=== PATIENT | female | born 1930 | race Caucasian/White ===

== ENCOUNTER → 2016-10-12 | Outpatient (CLI) | payer OTHER ==
--- NOTE | ~2016-10-12 | 2DMMODE ---
[facility] [address] [place] [address] 2 D/M-MODE ECHOCARDIOGRAM Name: TIFFANY UGALDE Room #: REG [facility]#: [id number] Admission: 10/12/16 Attend Phys: Oh Gonzalez MD Discharge: Date of : 34 Date of Service: 10/12/16 1507 Report #: [id number] THIS REPORT FOR: //name// APPROVED REPORT Study performed: 10/12/2016 13:57:51 EXAM: Comprehensive 2D, Doppler, and color-flow Echocardiogram Patient Location: Out-Patient Status: routine BSA: 1.53 HR: 96 bpm BP: 148/92 mmHg Rhythm: Atrial Fibrillation Other Information Study Quality: Good Indications Chronic Afib. 2D Dimensions RVDd: 37.25 mm LVEF(%): 56.03 (>50%) IVSd: 7.30 (7-11mm) LVOT Diam: 18.89 (18-24mm) LVDd: 45.92 mm PWd: 7.06 (7-11mm) Ascending Ao: 30.71 (22-36mm) LVDs: 32.53 (25-40mm) Aortic Root: 32.56 mm Gray's LVEF: 56.03 % Volumes Left Atrial Volume (Systole) Single Plane 4CH: 46.94 mL Single Plane 2CH: 74.93 mL LA ESV Index: 42.00 mL/m2 Aortic Valve AoV Peak Noble.: 1.13 m/s AO Peak Gr.: 5.15 mmHg LVOT Max P.27 mmHg LVOT Max V: 0.90 m/s NIRAJ Vmax: 2.23 cm2 Mitral Valve MV Decel. Time: 152.07 ms MV E Max Noble.: 1.31 m/s [facility] [place] [address] 2 D/M-MODE ECHOCARDIOGRAM Name: TIFFANY UGALDE Room #: [facility]#: [id number] Admission: 10/12/16 Attend Phys: Oh Gonzalez MD Discharge: Date of : 34 Date of Service: 10/12/16 1507 Report #: [id number] Pulmonary Valve PV Peak Noble.: 1.09 m/s PV Peak Gr.: 4.75 mmHg Tricuspid Valve TR Peak Noble.: 2.52 m/s RAP Estimate: 5.00 mmHg TR Peak Gr.: 25.34 mmHg PA Pressure: 30.00 mmHg Left Ventricle The left ventricle is normal size. There is normal left ventricular wall thickness. Left ventricular systolic function is normal. LVEF is 50-55%. This study is not technically sufficient to allow evaluation of the LV diastolic function due to atrial fibrillation. Right Ventricle The right ventricle is normal size. The right ventricular systolic function is normal. Atria Left atrium is moderately dilated. Right atrium is moderately dilated. Aortic Valve Aortic valve is mildly calcified. Trace aortic regurgitation. There is no aortic valvular stenosis. Mitral Valve Mitral valve leaflets are mildly thickened. Mild to moderate mitral regurgitation. Tricuspid Valve The tricuspid valve is normal in structure. There is mild to moderate tricuspid regurgitation. The right atrial pressure is estimated at 5 mmHg. There is borderline mild pulmonary hypertension with an estimated PAP of 30mmHg. Pulmonic Valve The pulmonary valve is normal in structure. Trace pulmonic regurgitation. Great Vessels The aortic root is normal in size. The ascending aorta is normal in size. IVC is normal in size and collapses >50% with inspiration. [facility] [address] [place] [address] 2 D/M-MODE ECHOCARDIOGRAM Name: TIFFANY UGALDE Room #: [facility]#: [id number] Admission: 10/12/16 Attend Phys: Oh Gonzalez MD Discharge: Date of : 34 Date of Service: 10/12/16 1507 Report #: [id number] Pericardium There is no pericardial effusion. <Conclusion> The left ventricle is normal size. Left ventricular systolic function is normal. The right ventricle is normal size. Left atrium is moderately dilated. Right atrium is moderately dilated. Trace aortic regurgitation. Mild to moderate mitral regurgitation. There is mild to moderate tricuspid regurgitation. The right atrial pressure is estimated at 5 mmHg. There is borderline mild pulmonary hypertension with an estimated PAP of 30mmHg. <ELECTRONICALLY SIGNED> By: Oh Gonzalez MD 10/12/16 1507 1507 1507 Oh Gonzalez MD /INF
== END ==
LOC: CV 09:57
DX: I08.1 Rheumatic disorders of both mitral and tricuspid valves (principal); I48.2 Chronic atrial fibrillation

== ENCOUNTER → 2017-10-08 | Outpatient (CLI) | payer OTHER | LOC: NUC 11:27 | DX: I48.2 Chronic atrial fibrillation (principal); I42.9 Cardiomyopathy, unspecified; I10 Essential (primary) hypertension; Z82.49 Family history of ischemic heart disease and other diseases of the circulatory system ==

== ENCOUNTER → 2018-10-10 | Outpatient (CLI) | payer OTHER ==
--- NOTE | 2018-10-10 15:16 | 2DMMODE ---
[facility] [address] [place] [address] 2 D/M-MODE ECHOCARDIOGRAM Name: TIFFANY UGALDE Room #: [facility]#: [id number] Admission: 10/10/18 Attend Phys: Oh Gonzalez MD Discharge: Date of : 34 Date of Service: 10/10/18 1515 Report #: [id number] THIS REPORT FOR: //name// APPROVED REPORT Study performed: 10/10/2018 13:59:50 EXAM: Comprehensive 2D, Doppler, and color-flow Echocardiogram Patient Location: Out-Patient Room #: Echo Lab 2 Status: routine BSA: 1.53 HR: 69 bpm BP: 142/88 mmHg Rhythm: Atrial Fibrillation Other Information Study Quality: Good Indications CAD 2D Dimensions RVDd: 26.86 mm IVSd: 9.04 (7-11mm) LVOT Diam: 18.27 (18-24mm) LVDd: 41.37 mm PWd: 8.31 (7-11mm) Ascending Ao: 34.35 (22-36mm) LVDs: 24.59 (25-40mm) Aortic Root: 34.02 mm IVC: 20.00 mm Volumes Left Atrial Volume (Systole) Single Plane 4CH: 52.17 mL Single Plane 2CH: 68.79 mL LA ESV Index: 45.00 mL/m2 Aortic Valve AoV Peak Noble.: 1.06 m/s AO Peak Gr.: 4.94 mmHg LVOT Max P.39 mmHg LVOT Max V: 0.92 m/s NIRAJ Vmax: 2.28 cm2 Mitral Valve MV Decel. Time: 143.46 ms MV E Max Noble.: 1.21 m/s IVRT: 76.12 ms [facility] [address] [place] [address] 2 D/M-MODE ECHOCARDIOGRAM Name: TIFFANY UGALDE Room #: [facility]#: [id number] Admission: 10/10/18 Attend Phys: Oh Gonzalez MD Discharge: Date of : 34 Date of Service: 10/10/18 1515 Report #: [id number] Pulmonary Valve PV Peak Noble.: 0.84 m/s PV Peak Gr.: 2.83 mmHg Tricuspid Valve TR Peak Noble.: 2.61 m/s RAP Estimate: 5.00 mmHg TR Peak Gr.: 27.23 mmHg PA Pressure: 32.00 mmHg Left Ventricle The left ventricle is normal size. There is normal left ventricular wall thickness. The left ventricular systolic function is normal. The left ventricular ejection fraction is within the normal range. LVEF is 50-55%. This study is not technically sufficient to allow evaluation of the LV diastolic function due to atrial fibrillation. Right Ventricle The right ventricle is normal size. The right ventricular systolic function is normal. Atria Left atrium is dilated. Right atrium is dilated. Aortic Valve The Aortic valve is sclerotic. Trace aortic regurgitation. There is no aortic valvular stenosis. Mitral Valve There is mitral annular calcification. Moderate mitral regurgitation. No evidence of mitral valve stenosis. Tricuspid Valve The tricuspid valve is normal in structure. Mild to moderate tricuspid regurgitation. Estimated PAP is 32mmHg. Pulmonic Valve Pulmonic valve is not well visualized. Trace pulmonic regurgitation. Great Vessels The aortic root is normal in size. IVC is normal in size and collapses >50% with inspiration. Pericardium There is no pericardial effusion. [facility] [place] [place] [address] 2 D/M-MODE ECHOCARDIOGRAM Name: TIFFANY UGALDE Room #: [facility]#: [id number] Admission: 10/10/18 Attend Phys: Oh Gonzalez MD Discharge: Date of : 34 Date of Service: 10/10/18 1515 Report #: [id number] <Conclusion> The left ventricle is normal size. There is normal left ventricular wall thickness. The left ventricular systolic function is normal. The right ventricle is normal size. Left atrium is dilated. Right atrium is dilated. The Aortic valve is sclerotic. Moderate mitral regurgitation. Mild to moderate tricuspid regurgitation. Estimated PAP is 32mmHg. <ELECTRONICALLY SIGNED> By: Oh Gonzalez MD 10/10/18 1515 1515 1515 Oh Gonzalez MD /MAIKEL
== END ==
LOC: CV 09:26
DX: I08.3 Combined rheumatic disorders of mitral, aortic and tricuspid valves (principal); I25.10 Atherosclerotic heart disease of native coronary artery without angina pectoris

== ENCOUNTER → 2019-04-10 | Outpatient (CLI) | payer OTHER | LOC: SJCVC 15:36 | DX: I48.20 Chronic atrial fibrillation, unspecified (principal); R94.31 Abnormal electrocardiogram [ECG] [EKG]; R60.9 Edema, unspecified; I10 Essential (primary) hypertension; E78.5 Hyperlipidemia, unspecified; Z79.01 Long term (current) use of anticoagulants; Z79.899 Other long term (current) drug therapy ==

== ENCOUNTER 2019-06-30 12:53 | Emergency (ER) | payer OTHER ==
[~2019-06-30] VITALS: Ht 160 cm; Wt 51.7 kg
[2019-06-30] MEDS ORDERED: PACERONE200 MG PO (13:09)
[2019-06-30] MEDS ORDERED: PRINIVIL10 MG PO (13:10)
[2019-06-30] MEDS ORDERED: DILTIAZEM ER180 M2 PO (13:10)
[2019-06-30] MEDS ORDERED: SYNTHROID88 MC1 PO (13:10)
[2019-06-30] MEDS ORDERED: VITAMIN D250 MC1 PO (13:11)
[2019-06-30] MEDS ORDERED: FISH OIL 1,0001 EAC9 PO (13:12)
[2019-06-30] MEDS ORDERED: XARELTO15 MG PO (13:12)
[2019-06-30] MEDS ORDERED: CALCIUM500 MG PO (13:12)
[2019-06-30] MEDS ORDERED: KEFLEX500 M1 PO (13:13)
[2019-06-30] MEDS ORDERED: GLUCOSAMINE1000 MG PO (13:14)
--- NOTE | 2019-06-30 15:01 | EKG ---
[facility] [place] [address] [place] [address] ELECTROCARDIOGRAM REPORT Name: TIFFANY UGALDE Room #: REG [facility]#: [id number] Admission: 06/30/19 Attend Phys: Discharge: Date of : 34 Report #: [id number] THIS REPORT FOR: cc: Jl Magallanse MD, Thomas P. MD Couchonnal, Luis F. MD ~ THIS REPORT FOR: //name// [facility] ED Test Date: 2019-06-30 Test Time: 14:52:14 Pat Name: TIFFANY UGALDE Department: Room: Gender: F [employer] Chief: [facility] : 1930 Requested By: Arthur Collins Order Number: [id number] MD: Jorden Metcalf Measurements Intervals [place] Rate: 93 P: UT: QRS: 60 QRSD: 86 T: -46 QT: 495 QTc: 616 Interpretive Statements Atrial fibrillation Probable LVH with secondary repol abnrm Prolonged QT interval Compared to ECG 03/22/1994 06:42:00 Electronically Signed On 06-30-2019 15:00:02 CDT by Jorden Metcalf [email or web address] <ELECTRONICALLY SIGNED> By: Jorden Metcalf MD 06/30/19 1500 145 145 Jorden Metcalf MD /DIOR
[2019-06-30 15:10] LABS: ABSOLUTE NEUTROPHILS 9.5 thou/uL (1.4-8.2); BASOPHILS 0.5 % (0.0-2.0); EOSINOPHILS 0.4 % (0.0-3.0); HEMATOCRIT 38.1 % (37.0-47.0); HEMOGLOBIN 12.8 gm/dL (12.0-15.0); LYMPHOCYTES 11.2 % (24.0-44.0); MCH 31.5 pg (26.0-34.0); MCHC 33.5 g/dL (28.0-37.0); MCV 93.9 fL (80.0-100.0); MONOCYTES 4.9 % (1.0-8.0); PLATELET COUNT 303 thou/uL (150-400); RBC 4.05 mil/uL (4.20-5.00); RDW 14.2 % (10.5-14.5); WBC 11.5 thou/uL (4.0-11.0)
[2019-06-30 15:18] LABS: CALCIUM 9.1 mg/dL (8.5-10.1); CREATININE 1.3 mg/dL (0.6-1.0); MAGNESIUM 2.1 mg/dL (1.8-2.4); POTASSIUM 5.3 mmol/L (3.5-5.1)
[2019-06-30 16:25] VITALS: BP 134/71
== END 2019-06-30 16:25 | disposition home or self-care (01) ==
LOC: ER 12:53
PROVIDERS: Emergency Medicine
DX: K64.4 Residual hemorrhoidal skin tags (principal); I10 Essential (primary) hypertension; Z79.899 Other long term (current) drug therapy; Z88.1 Allergy status to other antibiotic agents

== ENCOUNTER → 2019-07-14 | Outpatient (CLI) | payer OTHER ==
[~2019-07-14] MED LIST: CALCIUM500 MG PO; DILTIAZEM ER180 M2 PO; FISH OIL 1,0001 EAC9 PO; GLUCOSAMINE1000 MG PO; KEFLEX500 M1 PO; PACERONE200 MG PO; PRINIVIL10 MG PO; SYNTHROID88 MC1 PO; VITAMIN D250 MC1 PO; XARELTO15 MG PO
== END ==
LOC: SJCVCIMAG 08:52
DX: I08.8 Other rheumatic multiple valve diseases (principal); I11.9 Hypertensive heart disease without heart failure; R94.31 Abnormal electrocardiogram [ECG] [EKG]; I48.20 Chronic atrial fibrillation, unspecified; T46.2X5S Adverse effect of other antidysrhythmic drugs, sequela; I42.9 Cardiomyopathy, unspecified; Z95.0 Presence of cardiac pacemaker; Z79.899 Other long term (current) drug therapy

== ENCOUNTER → 2020-01-13 | Outpatient (CLI) | payer OTHER | LOC: SJCVC 13:00 | PROVIDERS: ATTEND Internal Medicine Cardiovascular Disease | DX: I48.20 Chronic atrial fibrillation, unspecified (principal); R94.31 Abnormal electrocardiogram [ECG] [EKG]; I10 Essential (primary) hypertension; I42.9 Cardiomyopathy, unspecified; E78.5 Hyperlipidemia, unspecified; Z79.899 Other long term (current) drug therapy ==

== ENCOUNTER → 2020-02-18 | Outpatient (CLI) | payer OTHER ==
[~2020-02-18] MED LIST changes: +NORCO 10-325 T1 EACH PO; +SUPER THERAVIT1 EACH PO; +WARFARIN SODIUM2 MG PO
== END ==
LOC: SJCVC 14:21
PROVIDERS: ATTEND Nuclear Medicine Nuclear Cardiology
DX: S32.010A Wedge compression fracture of first lumbar vertebra, initial encounter for closed fracture (principal); E78.00 Pure hypercholesterolemia, unspecified; I48.20 Chronic atrial fibrillation, unspecified; I42.9 Cardiomyopathy, unspecified; E78.5 Hyperlipidemia, unspecified; I10 Essential (primary) hypertension; Z79.01 Long term (current) use of anticoagulants; Z79.899 Other long term (current) drug therapy; X58.XXXA Exposure to other specified factors, initial encounter; Y93.89 Activity, other specified; Y92.89 Other specified places as the place of occurrence of the external cause; Y99.8 Other external cause status

== ENCOUNTER → 2020-02-23 | Outpatient (CLI) | payer OTHER ==
[~2020-02-23] VITALS: Ht 160 cm; Wt 48.1 kg
[2020-02-23 07:21] VITALS: BP 155/83
[2020-02-23 07:44] LABS: HEMATOCRIT 41.7 % (37.0-47.0); HEMOGLOBIN 13.6 gm/dL (12.0-15.0); MCH 30.5 pg (26.0-34.0); MCHC 32.5 g/dL (28.0-37.0); MCV 93.9 fL (80.0-100.0); RBC 4.44 mil/uL (4.20-5.00); RDW 13.7 % (10.5-14.5); WBC 10.2 thou/uL (4.0-11.0)
[2020-02-23 07:57] LABS: INR 1.2; PROTIME 12.2 Seconds (9.3-11.4)
== END | disposition home or self-care (01) ==
LOC: CATH 06:52
PROVIDERS: ATTEND Nuclear Medicine Nuclear Cardiology
DX: M54.9 Dorsalgia, unspecified (principal); M80.08XA Age-related osteoporosis with current pathological fracture, vertebra(e), initial encounter for fracture; I10 Essential (primary) hypertension; E78.00 Pure hypercholesterolemia, unspecified; I48.20 Chronic atrial fibrillation, unspecified; I42.9 Cardiomyopathy, unspecified; E78.5 Hyperlipidemia, unspecified; Z98.890 Other specified postprocedural states; Z79.899 Other long term (current) drug therapy; Z79.01 Long term (current) use of anticoagulants; Z88.8 Allergy status to other drugs, medicaments and biological substances

== ENCOUNTER → 2020-03-03 | Outpatient (CLI) | payer OTHER | LOC: SJCVC 13:10 | PROVIDERS: ATTEND Nuclear Medicine Nuclear Cardiology | DX: S32.010A Wedge compression fracture of first lumbar vertebra, initial encounter for closed fracture (principal); E78.00 Pure hypercholesterolemia, unspecified; I48.20 Chronic atrial fibrillation, unspecified; I10 Essential (primary) hypertension; E78.5 Hyperlipidemia, unspecified; I42.9 Cardiomyopathy, unspecified; Z79.01 Long term (current) use of anticoagulants; Z79.899 Other long term (current) drug therapy; X58.XXXA Exposure to other specified factors, initial encounter; Y93.89 Activity, other specified; Y92.89 Other specified places as the place of occurrence of the external cause; Y99.8 Other external cause status ==

== ENCOUNTER → 2020-04-16 | Outpatient (CLI) | payer OTHER | LOC: SJCVC 11:20 | PROVIDERS: ATTEND Internal Medicine Cardiovascular Disease | DX: Z51.81 Encounter for therapeutic drug level monitoring (principal); Z79.01 Long term (current) use of anticoagulants ==

== ENCOUNTER → 2020-07-20 | Outpatient (CLI) | payer OTHER | LOC: SJCVC 13:15 | PROVIDERS: ATTEND Internal Medicine Cardiovascular Disease | DX: R94.31 Abnormal electrocardiogram [ECG] [EKG] (principal); I48.92 Unspecified atrial flutter; I34.0 Nonrheumatic mitral (valve) insufficiency; I10 Essential (primary) hypertension; R60.9 Edema, unspecified; M54.9 Dorsalgia, unspecified; I42.9 Cardiomyopathy, unspecified; E78.00 Pure hypercholesterolemia, unspecified; E78.5 Hyperlipidemia, unspecified; I48.21 Permanent atrial fibrillation; Z88.8 Allergy status to other drugs, medicaments and biological substances; Z79.899 Other long term (current) drug therapy; Z82.49 Family history of ischemic heart disease and other diseases of the circulatory system ==

== ENCOUNTER → 2020-07-26 | Outpatient (CLI) | payer OTHER | LOC: MRI 08:09 | PROVIDERS: ATTEND Nuclear Medicine Nuclear Cardiology | DX: M54.6 Pain in thoracic spine (principal); M43.16 Spondylolisthesis, lumbar region; M48.04 Spinal stenosis, thoracic region; K44.9 Diaphragmatic hernia without obstruction or gangrene ==

== ENCOUNTER → 2020-07-26 | Outpatient (CLI) | payer OTHER ==
[~2020-07-26] VITALS: Ht 157.5 cm; Wt 45.8 kg
[2020-07-26 11:12] LABS: HEMATOCRIT 40.4 % (37.0-47.0); HEMOGLOBIN 13.5 gm/dL (12.0-15.0); MCH 31.9 pg (26.0-34.0); MCHC 33.4 g/dL (28.0-37.0); MCV 95.6 fL (80.0-100.0); RBC 4.23 mil/uL (4.20-5.00); RDW 13.5 % (10.5-14.5); WBC 9.8 thou/uL (4.0-11.0)
== END | disposition home or self-care (01) ==
LOC: CATH 10:34
PROVIDERS: ATTEND Nuclear Medicine Nuclear Cardiology
DX: M54.6 Pain in thoracic spine (principal); M80.08XA Age-related osteoporosis with current pathological fracture, vertebra(e), initial encounter for fracture; M54.9 Dorsalgia, unspecified; I10 Essential (primary) hypertension; E78.5 Hyperlipidemia, unspecified; I48.91 Unspecified atrial fibrillation; I42.9 Cardiomyopathy, unspecified; Z98.890 Other specified postprocedural states; Z79.899 Other long term (current) drug therapy; Z88.0 Allergy status to penicillin; Z88.8 Allergy status to other drugs, medicaments and biological substances

== ENCOUNTER → 2020-08-24 | Outpatient (CLI) | payer OTHER | LOC: SJCVC 14:50 | PROVIDERS: ATTEND Nuclear Medicine Nuclear Cardiology | DX: S22.080A Wedge compression fracture of T11-T12 vertebra, initial encounter for closed fracture (principal); E78.00 Pure hypercholesterolemia, unspecified; M54.9 Dorsalgia, unspecified; I48.20 Chronic atrial fibrillation, unspecified; I42.9 Cardiomyopathy, unspecified; E78.5 Hyperlipidemia, unspecified; I10 Essential (primary) hypertension; Z88.1 Allergy status to other antibiotic agents; Z88.8 Allergy status to other drugs, medicaments and biological substances; Z79.01 Long term (current) use of anticoagulants; Z79.899 Other long term (current) drug therapy; Z82.49 Family history of ischemic heart disease and other diseases of the circulatory system; X58.XXXA Exposure to other specified factors, initial encounter; Y93.89 Activity, other specified; Y92.89 Other specified places as the place of occurrence of the external cause; Y99.8 Other external cause status ==

== ENCOUNTER → 2020-11-16 | Outpatient (CLI) | payer OTHER | LOC: SJCVC 13:13 | PROVIDERS: ATTEND Internal Medicine Cardiovascular Disease | DX: Z51.81 Encounter for therapeutic drug level monitoring (principal); Z79.01 Long term (current) use of anticoagulants; I10 Essential (primary) hypertension; E78.5 Hyperlipidemia, unspecified; I42.0 Dilated cardiomyopathy; I48.21 Permanent atrial fibrillation; Z86.79 Personal history of other diseases of the circulatory system; Z79.899 Other long term (current) drug therapy ==

== ENCOUNTER → 2020-11-30 | Outpatient (CLI) | payer OTHER | LOC: SJCVC 08:58 | PROVIDERS: ATTEND Internal Medicine Cardiovascular Disease | DX: Z51.81 Encounter for therapeutic drug level monitoring (principal); I10 Essential (primary) hypertension; E78.5 Hyperlipidemia, unspecified; Z79.01 Long term (current) use of anticoagulants; Z79.2 Long term (current) use of antibiotics; Z79.891 Long term (current) use of opiate analgesic; Z79.899 Other long term (current) drug therapy; Z88.1 Allergy status to other antibiotic agents; Z88.8 Allergy status to other drugs, medicaments and biological substances; Z72.89 Other problems related to lifestyle ==

== ENCOUNTER → 2020-12-07 | Outpatient (CLI) | payer OTHER | LOC: SJCVC 09:06 | PROVIDERS: ATTEND Internal Medicine Cardiovascular Disease | DX: Z51.81 Encounter for therapeutic drug level monitoring (principal); E78.5 Hyperlipidemia, unspecified; I10 Essential (primary) hypertension; I34.0 Nonrheumatic mitral (valve) insufficiency; Z79.01 Long term (current) use of anticoagulants; Z79.891 Long term (current) use of opiate analgesic; Z88.1 Allergy status to other antibiotic agents; Z88.8 Allergy status to other drugs, medicaments and biological substances; Z82.49 Family history of ischemic heart disease and other diseases of the circulatory system; Z72.89 Other problems related to lifestyle; Z79.899 Other long term (current) drug therapy ==

== ENCOUNTER → 2021-01-27 | Outpatient (CLI) | payer OTHER | LOC: SJCVCIMAG 07:12 | PROVIDERS: ATTEND Internal Medicine Cardiovascular Disease | DX: R94.31 Abnormal electrocardiogram [ECG] [EKG] (principal); I08.1 Rheumatic disorders of both mitral and tricuspid valves; I48.21 Permanent atrial fibrillation; I42.9 Cardiomyopathy, unspecified; I10 Essential (primary) hypertension; R60.9 Edema, unspecified; Z88.1 Allergy status to other antibiotic agents; Z79.01 Long term (current) use of anticoagulants; Z79.899 Other long term (current) drug therapy; Z88.8 Allergy status to other drugs, medicaments and biological substances; Z72.89 Other problems related to lifestyle ==

== ENCOUNTER → 2021-02-03 | Outpatient (CLI) | payer OTHER | LOC: SJCVC 08:57 | PROVIDERS: ATTEND Internal Medicine Cardiovascular Disease | DX: Z51.81 Encounter for therapeutic drug level monitoring (principal); E78.00 Pure hypercholesterolemia, unspecified; I48.20 Chronic atrial fibrillation, unspecified; Z79.01 Long term (current) use of anticoagulants; Z79.899 Other long term (current) drug therapy; Z88.1 Allergy status to other antibiotic agents; Z88.8 Allergy status to other drugs, medicaments and biological substances ==

== ENCOUNTER → 2021-02-08 | Outpatient (CLI) | payer OTHER | LOC: SJCVC 09:42 | PROVIDERS: ATTEND Internal Medicine Cardiovascular Disease | DX: Z51.81 Encounter for therapeutic drug level monitoring (principal); I48.20 Chronic atrial fibrillation, unspecified; E78.00 Pure hypercholesterolemia, unspecified; Z79.01 Long term (current) use of anticoagulants; Z79.899 Other long term (current) drug therapy; Z88.1 Allergy status to other antibiotic agents; Z88.8 Allergy status to other drugs, medicaments and biological substances ==

== ENCOUNTER → 2021-02-22 | Outpatient (CLI) | payer OTHER | LOC: SJCVC 09:56 | PROVIDERS: ATTEND Internal Medicine Cardiovascular Disease | DX: Z51.81 Encounter for therapeutic drug level monitoring (principal); Z79.01 Long term (current) use of anticoagulants ==

== ENCOUNTER → 2021-03-01 | Outpatient (CLI) | payer OTHER | LOC: SJCVC 10:59 | PROVIDERS: ATTEND Internal Medicine Cardiovascular Disease | DX: Z51.81 Encounter for therapeutic drug level monitoring (principal); Z79.01 Long term (current) use of anticoagulants ==

== ENCOUNTER → 2021-03-22 | Outpatient (CLI) | payer OTHER | LOC: SJCVC 09:00 | PROVIDERS: ATTEND Internal Medicine Cardiovascular Disease | DX: Z51.81 Encounter for therapeutic drug level monitoring (principal); Z79.01 Long term (current) use of anticoagulants ==